=== PATIENT | female | born 1985 | race American Indian/Alaskan Native ===

== ENCOUNTER 2018-02-08 01:58 | Emergency (ER) | payer SELFPAY ==
[2018-02-08 02:27] VITALS: BP 137/89
--- NOTE | 2018-02-08 04:00 | XRay Report ---
FINAL REPORT PROCEDURE: XR NECK SOFT TISSUE TECHNIQUE: Soft tissue neck radiographs, 2 views, including AP and lateral. CPT 68414 HISTORY: Left throat/ Foreign body COMPARISON: No prior studies are available for comparison. FINDINGS: Bone mineralization: Normal. Alignment: Normal. Soft tissues: Epiglottis and hypopharyngeal soft tissues normal. Foreign bodies: None. IMPRESSION: Normal Examination.
--- NOTE | 2018-02-08 04:02 | XRay Report ---
FINAL REPORT PROCEDURE: XR CHEST ROUTINE 2V TECHNIQUE: PA and lateral chest radiographs were obtained. CPT 32123 HISTORY: cough COMPARISON: No prior studies are available for comparison. FINDINGS: Heart: Normal. Mediastinum/Vessels: Normal. Lungs/Pleural space: Normal. Bony thorax: No acute osseous abnormality. Other: IMPRESSION: Normal examination.
== END 2018-02-08 03:30 | disposition left against medical advice (07) ==
LOC: ED 01:58
DX: R06.00 Dyspnea, unspecified (principal); R07.89 Other chest pain; Z53.21 Procedure and treatment not carried out due to patient leaving prior to being seen by health care provider
CPT/HCPCS: 70360; 71046

== ENCOUNTER 2020-04-12 14:09 | Observation (INO) | payer BC, MEDICAID ==
[2020-04-12 15:40] LABS: Hematocrit 32.4 % (30.3-42.9); Mean Corpuscular HGB Conc 31 % (30-34); Mean Corpuscular Volume 72 fl (79-97); Platelet Count 319 K/mm3 (140-440); Red Blood Count 4.48 M/mm3 (3.65-5.03); Red Cell Distribution Width 17.5 % (13.2-15.2)
[2020-04-12 15:43] LABS: Bacteria,Urine 1+ /HPF (Negative); Bilirubin,Urine NEG (Negative); Blood,Urine NEG (Negative); Color,Urine Yellow (Yellow); Mucus,Urine 3+ /HPF; Protein,Urine <15 mg/dL mg/dL (Negative); Urobilinogen,Urine < 2.0 mg/dL (<2.0)
[2020-04-12 15:57] LABS: Alanine Aminotransferase 24 units/L (7-56)
[2020-04-12] MEDS ORDERED: LACTATED RINGERS 1,000 ML IV SCH (16:00)
[2020-04-12] MEDS ORDERED: NIFEdipine*For Tocolysis only* 10 MG CAPSULE PO ONE (16:14)
[2020-04-12] MEDS ORDERED: ACETAMINOPHEN 325 MG TAB PO ONE (17:00)
[2020-04-12 17:11] LABS: Uric Acid 5.1 mg/dL (3.5-7.6)
[2020-04-12] MEDS ORDERED: ACETAMINOPHEN 325 MG TAB PO PRN (18:27)
[2020-04-12 20:07] LABS: Alanine Aminotransferase 24 units/L (7-56); Albumin 3.4 g/dL (3.9-5); BUN/Creatinine Ratio 15; Blood Urea Nitrogen 9 mg/dL (7-17); Calcium 8.8 mg/dL (8.4-10.2); Hemolysis Index 5
[2020-04-12] MEDS ORDERED: ONDANSETRON 4 MG/2 ML INJ IV PRN (20:48)
[2020-04-12] MEDS: D5W/LACTATED RINGERS 1,000 ML IV SCH (21:10)
[2020-04-12] MEDS ORDERED: IBUPROFEN 800 MG TAB PO PRN (21:20)
--- NOTE | 2020-04-12 21:37 | Ultrasound Report ---
Limited ultrasound for biophysical profile FINDINGS: heart rate is 157 bpm. breathing motion, spontaneous movement, tone and q ualitative DORA all score 2/2 for a total of 8/8. Signer Name: Ryan Escalera MD Signed: 04/12/2020 9:33 PM Workstation Name: [id number]
[2020-04-12] MEDS ORDERED: diazePAM 5 MG TAB PO SCH (22:00)
[2020-04-13] MEDS: D5W/LACTATED RINGERS 1,000 ML IV SCH (05:19)
[2020-04-13 09:30] VITALS: BP 109/62
== END 2020-04-13 11:05 | disposition home or self-care (01) ==
LOC: TRG 14:09 → APU 14:09 → LD 14:10 → APU 14:12 → TRG 18:17
PROVIDERS: ADMIT Obstetrics & Gynecology; ATTEND Obstetrics & Gynecology
DX: O62.9 Abnormality of forces of labor, unspecified (principal); O26.893 Other specified pregnancy related conditions, third trimester; R42 Dizziness and giddiness; R51 Headache; R11.0 Nausea; O99.89 Other specified diseases and conditions complicating pregnancy, childbirth and the puerperium; H53.8 Other visual disturbances; O09.523 Supervision of elderly multigravida, third trimester; Z3A.34 34 weeks gestation of pregnancy
CPT/HCPCS: 36415; 76819; 80053; 81001; 82010; 82565; 82962; 83615; 84443; 84450; 84460; 84550; 85027; 96360; 96361; G0378; J7120; J7121